=== PATIENT | male | born 1960 ===

== ENCOUNTER 2021-11-05 02:40 | Emergency (ER) | payer SELFPAY ==
[~2021-11-05 02:40] MED LIST: EPINEPHrine 1 MG/10 ML SYRINGE ONE; SODIUM BICARB 8.4% 50 MEQ/50 ML SYRINGE IV ONE
--- NOTE | 2021-11-05 02:59 | Emergency Department Report ---
ED CPR HPI - General Stated Complaint: CARDIAC ARREST Time Seen by Provider: 11/05/21 02:54 Source: EMS Mode of arrival: Stretcher - History of Present Illness Initial Comments: Patient is a 61-year-old male brought in by EMS after witnessed arrest. BLS truck arrived and initiated CPR. Initial rhythm asystole. ACLS truck later arrived. Patient received several rounds of CPR along with 2 doses of ep inephrine in route. ED Review of Systems ROS: Stated complaint: CARDIAC ARREST Other details as noted in HPI Comment: Unobtainable due to pts medical conditions ED Physical Exam - General General appearance: other (Unresponsive) - Head Head exam: Present: normocephalic - Respiratory Respiratory exam: Present: other (No spontaneous respiration) - Cardiovascular Cardiovascular Exam: Present: other (No palpable pulse, no heart sounds on auscultation) - GI/Abdominal GI/Abdominal exam: Present: soft - Neurological Exam Neurological exam: Present: other (GCS 3) - Skin Skin exam: Present: warm, dry, intact, normal color ED Medical Decision Making - Medical Decision Making Patient remains in asystole on arrival. He was given additional ACLS drugs. Efforts were continued for an additional 10 minutes however unable to obtain ROSC. Patient . Critical care attestation.: If time is entered above; I have spent that time in minutes in the direct care of this critically ill patient, excluding procedure time. ED Disposition Clinical Impression: Cardiac arrest Disposition: 20 Is pt being admited?: No Condition: Stable
== END 2021-11-05 06:16 ==
LOC: ED 02:40
DX: I46.9 Cardiac arrest, cause unspecified (principal)
CPT/HCPCS: 92950; 99285; J0171